=== PATIENT | female | born 2000 | race Caucasian/White ===

== ENCOUNTER → 2020-05-24 08:11 | Outpatient (REF) | payer OTHER, SELFPAY ==
[2020-05-24 12:03] LABS: Probe Check PASS; Specimen Processing Control PASS
== END ==
LOC: LABSPEC 08:11
PROVIDERS: Referring Provider Internal Medicine; Visit Provider Internal Medicine
DX: Z20.828 Contact with and (suspected) exposure to other viral communicable diseases (principal)
CPT/HCPCS: 87635; U0002